=== PATIENT | female | born 1990 | race Caucasian/White ===

== ENCOUNTER 2019-05-21 12:20 | Emergency (ER) | payer OTHER ==
[~2019-05-21] VITALS: Ht 165.1 cm; Wt 83.9 kg
[2019-05-21 15:48] VITALS: BP 142/101
== END 2019-05-21 16:54 | disposition home or self-care (01) ==
LOC: ER 12:29
DX: N36.8 Other specified disorders of urethra (principal); R51 Headache; R42 Dizziness and giddiness